=== PATIENT | male | born 1955 ===

== ENCOUNTER 2024-04-09 14:06 | Outpatient (AMB) | payer MEDICARE, MEDICAID, SELFPAY ==
--- NOTE | 2024-04-09 14:17 | A.OFFVIS_ITS ---
Intake Visit Reasons: gross hematuria, hx bladder cancer Intake Note: New patient is present to establish care for Gross Hematuria, Hx of Bladder Cancer. Was previously was seeing Urologist In [place] [facility] [place] Required: No Allergies No Known Allergies Allergy (Verified 04/09/24 20:49) Medication List - Last Reconciled 04/09/24 by MEGHANA Meneses amlodipine 5 mg PO DAILY atorvastatin 20 mg PO DAILY HPI Comments Details: Nik is a very pleasant 68-year-old male patient of Dr. Reis. He has a past medical history of left renal cysts, peripheral artery disease, multiple pulmonary nodules, hemorrhoids, hypertension, history of bladder cancer, ED, nicotine dependence, adrenal adenoma, and abdominal aortic aneurysm. He presents to the office today as a new patient for gross hematuria. He discusses having followed up approximately 2 years ago with a urologist in [place] and undergoing multiple treatments for his bladder cancer. He reports being told his bladder cancer was gone and no longer needed to follow- up. He reports noting over the last 2-3 months having episodes of gross hematuria. When asked he does report a longstanding history of nicotine dependence. He reports smoking for over 60 years. He is unable to provide a urine sample today. When asked he reports noting urinary incontinence. He discusses his upcoming follow-up appointment tomorrow with General surgery at [facility] for ongoing hemorrhoids he has been experiencing. He otherwise denies dysuria, foul smelling urine, changes to urinary stream, flank pain, fever, and or chills. Discussed obtaining CT urogram for further assessment evaluation as well as urine cytology, urine fish for further assessment evaluation. I discussed reasons for blood in the urine may include but are not limited to kidney stones, cancer in the urinary tract, BPH, kidney stone disease or inflamm atory conditions of the urinary tract. I have discussed workup to include cystoscopy evaluation. [facility] Medical History (Updated 04/09/24 @ 14:40 by MEGHANA Meneses) Renal cyst, left Peripheral artery disease Obesity, Class I, BMI 30-34.9 Multiple pulmonary nodules Hemorrhoids HTN (hypertension) Hx of bladder cancer Erectile dysfunction Cigarette smoker Adrenal adenoma AAA (abdominal aortic aneurysm) Surgical History (Updated 04/09/24 @ 14:14 by Ingrid Boggs Shahzad) History of repair of inguinal hernia History of cholecystectomy History of transurethral resection of bladder tumor (TURBT) Social History (Updated 04/09/24 @ 14:14 by SHAHNAZ Gonzalez) Patient Tobacco Use Status: Current everyday Tobacco user Review of Systems Const Reports as per HPI Eyes Reports no additional complaints ENT Reports no additional complaints Card Reports as per HPI Resp Reports as per HPI GI Reports as per HPI Reports as per HPI Musc Reports no additional complaints Neuro Reports no additional complaints Psych Reports no additional complaints Endo Reports no additional complaints Oscar/Lymph Reports no additional complaints Aller/Immun Reports no additional complaints Physical Exam Const General: cooperative, healthy appearing, comfortable, no acute distress, well developed, alert and awake Orientation/consciousness: patient oriented x3 Limitations: no limitations HEENT Head: Yes normal to inspection, Yes normocephalic and Yes atraumatic Ears: hearing grossly normal bilaterally Eyes General: appearance normal, both eyes and all related structures Neck Neck: Yes normal visual inspection and Yes trachea midline Chest Chest palpation & inspection: normal inspection of the chest Resp Effort & Inspection: normal respiratory effort and able to speak in complete sentences Cardio Rate: regular rate GI Inspection: Yes normal to inspection General: Yes no CVA tenderness Back/Spine/Pelvis Back: no CVA tenderness Skin General skin exam: no rashes or lesions noted Neuro General: patient oriented x3 Extrem General: Yes normal to inspection Psych Appearance: grossly normal and well kempt Mental Status: mental status grossly normal Speech and movement: Normal speech and movement present and Clear speech present Affect: normal affect Attitude: cooperative Thought process: Normal thought process present Thought content: Normal thought content present Insight: Fair insight present (Psych) Judgement: Fair judgement present (Psych) Assessment & Plan Assessment & Plan (1) Hx of bladder cancer: Code(s): Z85.51 - Personal history of malignant neoplasm of bladder Category: Medical (2) Gross hematuria: Code(s): R31.0 - Gross hematuria Category: Medical (3) Nicotine dependence: Code(s): F17.200 - Nicotine dependence, unspecified, uncomplicated Category: Medical Plan Unable to obtain urine for urinalysis. Medical release form signed will attempt to obtain previous urology records for continuity of care. Discussed obtaining BUN, creatinine, PSA, urine cytology and fish for further assessment evaluation. CT urogram ordered for further assessment evaluation. Discussed, educated, and stressed the importance of limiting/quitting nicotine dependence for overall health and well-being. Follow-up in office cystoscopy with imaging and labs to be completed prior; or sooner with any issues, concerns, and or questions. Orders: Orders Blood Urea Nitrogen Today F17.200 - Nicotine dependence, unspecified, unc omplicated, R31.0 - Gross hematuria, Z85.51 - Personal history of malignant neoplasm of bladder Creatinine Today F17.200 - Nicotine dependence, unspecified, uncomplicated, R 31.0 - Gross hematuria, Z85.51 - Personal history of malignant neoplasm of bladder Prostate Specific Antigen Today N40.0 - Benign prostatic hyperplasia without lower urinary tract symptoms Urine Cytology Today F17.200 - Nicotine dependence, unspecified, uncomplicated, R31.0 - Gross hematuria, Z85.51 - Personal history of malignant neoplasm of b ladder CT urogram Today R31.0 - Gross hematuria FISH Bladder Cancer Today C67.9 - Malignant neoplasm of bladder, unspecified Patient Instructions: The patient had an opportunity to ask questions regarding the treatment plan. All questions were answered. Physical exam, labs, and imaging were discussed and reviewed in detail. As well as risks, benefits, and discussion of treatment choices. No major barriers to understanding were identified. The patient expressed understanding and agreement with the above treatment plan. The patient was made aware they should contact our office by phone for worsening of their current condition, the appearance of new symptoms, or with any questions or concerns. Compliance is encouraged with any medications and follow up testing that is ordered. It is a privilege to be allowed the opportunity to participate in? your urological care.? Again, if you have any questions or concerns If you have any questions or concerns please do not hesitate to contact me. The office is [phone]. This note is constructed using voice recognition software. While every effort has been made to ensure accuracy automatic equipment technician errors may have been included. Yours sincerely, MEGHANA Meneses Coding Level of Care Code New Pt Level 4 (90849) Diagnoses Hx of bladder cancer Z85.51 Gross hematuria R31.0 Nicotine dependence F17.200
== END 2024-04-09 14:35 | disposition home or self-care (01) ==
PROVIDERS: PCP Nurse Practitioner Family; Visit Provider Nurse Practitioner Family
DX: Z85.51 Personal history of malignant neoplasm of bladder (principal); R31.0 Gross hematuria; F17.200 Nicotine dependence, unspecified, uncomplicated
CPT/HCPCS: 99204

== ENCOUNTER → 2024-04-09 14:06 | Outpatient (BNVA) | payer MEDICARE, MEDICAID, SELFPAY | PROVIDERS: PCP Nurse Practitioner Family; Visit Provider Nurse Practitioner Family | DX: R31.0 Gross hematuria (principal); Z85.51 Personal history of malignant neoplasm of bladder | CPT/HCPCS: 99202 ==

== ENCOUNTER 2024-06-10 08:23 | Outpatient (REF) | payer MEDICARE, MEDICAID, SELFPAY | END 2024-06-10 08:24 | disposition home or self-care (01) | LOC: HO.10HDL 08:23 | PROVIDERS: Visit Provider Nurse Practitioner Family | DX: R31.0 Gross hematuria (principal); F17.200 Nicotine dependence, unspecified, uncomplicated; N40.0 Benign prostatic hyperplasia without lower urinary tract symptoms; Z85.51 Personal history of malignant neoplasm of bladder | CPT/HCPCS: 88112 ==

== ENCOUNTER 2024-06-10 08:39 | Outpatient (REF) | payer MEDICARE, OTHER, SELFPAY ==
--- NOTE | ~2024-06-10 | CT_ITS ---
EXAMINATION: CT ABDOMEN AND PELVIS WITHOUT AND WITH CONTRAST CLINICAL INFORMATION: Gross hematuria COMPARISON: None available. TECHNIQUE: Noncontrast CT of the abdomen and pelvis is performed followed by split bolus contrast-enhanced images using 85 mL Omnipaque 350 contrast. Postcontrast imaging is performed during the combined nephrogram and excretion phase. Sagittal and coronal reformatted images were obtained on the technologist's workstation for both the precontrast and postcontrast phases. This CT examination was performed using dose optimization techniques as appropriate, variously including the following: *Automated exposure control *Adjustment of mA and/or kV according to patient size (this includes techniques or standardized protocols for targeted exams where dose is matched to indication/reason for exam; i.e. extremities or head) *Use of iterative reconstruction technique DLP: 688 mGy-cm FINDINGS: LUNG BASES: Bibasilar atelectasis. Multiple scattered bilateral pulmonary cysts, largest of which measure 8 mm in the lingula, 1.1 cm in the left lower lobe, and 6 mm in the right lower lobe. LIVER, GALLBLADDER, AND BILIARY TREE: The liver is normal in size, shape, and attenuation. No focal hepatic lesion. Mild bilateral pneumobilia. No biliary ductal dilatation is present. Status post cholecystectomy with surgical clips located in the gallbladder fossa. PANCREAS: Unremarkable. SPLEEN: Unremarkable. ADRENAL GLANDS: Right adrenal nodule measures 1.6 x 1.2 cm and -10 HU on noncontrast images (4:37). The left adrenal gland is unremarkable. KIDNEYS AND URETERS: Two simple renal cysts in the upper pole of the left kidney measure 1.4 x 0.8 cm (19:133) and 1.7 x 1.4 cm (19:150) are likely benign and do not require further imaging follow-up. The kidneys are normal in size, shape, and attenuation. No hydronephrosis, hydroureter, or calculi seen. No filling defects in the bilateral collecting systems. No perinephric stranding. BLADDER: Diffuse bladder wall thickening. There is layering excreted contrast in the bladder lumen, without filling defects. GASTROINTESTINAL TRACT: The small and large bowel are unremarkable. The appendix is not visualized but there are no inflammatory changes in the right lower quadrant to suggest acute appendicitis. ABDOMINAL WALL: No significant hernia is appreciated. LYMPH NODES: Normal. VASCULAR: Abdominal aortic aneurysm status post repair with an aorto-iliac stent graft into the left common iliac artery, which is patent. There is persistent aneurysm of the distal abdominal aorta that measures 4.3 x 2.9 cm. The excluded sac is completely thrombosed. Limited evaluation for endoleak, however slight increase in density of the excluded sac on delayed images may indicate the presence of an endoleak. There is a separate right common iliac artery stent graft with proximal orifice originating from the excluded thrombosed aneurysm sac. The right common iliac artery stent is also thrombosed and the right external iliac and internal iliac arteries are completely occluded. Reconstitution of the distal right common femoral artery via a patent proximal femoral bypass graft. PELVIC VISCERA: Unremarkable. OSSEUS STRUCTURES: Degenerative changes of the spine. No destructive osseous sections. CT/CT urogram IMPRESSION: 1. Diffuse bladder wall thickening, which may be secondary to underdistention or cystitis. Recommend urinalysis. 2. No filling defects in the bilateral collecting systems. No hydronephrosis or nephrolithiasis. 3. Abdominal aortic aneurysm status post repair with an aorto-iliac stent graft into the left common iliac artery, which is patent. 4. Persistent aneurysm of the distal abdominal aorta measures 4.3 cm in maximal diameter with thrombosis of the excluded sac. Limited evaluation for endoleak, however slight increase in density of the excluded sac on delayed images when compared to the noncontrast images may indicate the presence of an endoleak. Recommend CTA of the abdomen/pelvis to further characterize. 5. Occluded right common iliac artery stent graft, right external iliac artery, and right internal iliac artery. Reconstitution of the distal right common femoral artery via a patent proximal femoral bypass graft. 6. 1.6 cm right adrenal nodule measures -10 HU on noncontrast images. Adrenal nodules of any size exhibiting a CT density of =<10 HU are overwhelmingly likely to represent lipid rich benign adenomas for which no followup imaging is recommended. Electronically signed by: Marianne Fam MD 07/21/2024 12:02 PM EDT
[2024-06-10 09:18] LABS: Urine Cytology See Pathology rpt
[2024-06-10 09:28] LABS: Blood Urea Nitrogen 18 mg/dL (9-16); Estimated Glomerular Filt Rate > 60
[2024-06-10 10:02] LABS: Prostate Specific Antigen < 0.10 ng/mL (<0.05-4.0)
[2024-06-10] MEDS: iohexoL 350 MG/ML 100 ML INFUS..BTL 85 ML IV (10:31)
== END 2024-06-10 08:40 | disposition home or self-care (01) ==
LOC: HO.CT 08:39
PROVIDERS: Visit Provider Nurse Practitioner Family
DX: R31.0 Gross hematuria (principal); Z12.5 Encounter for screening for malignant neoplasm of prostate
CPT/HCPCS: 36415; 74178; 82565; 84153; 84520; Q9967

== ENCOUNTER 2024-07-30 10:12 | Outpatient (AMB) | payer MEDICARE, MEDICAID, SELFPAY ==
--- NOTE | 2024-07-30 10:34 | MHC.OFFVIS ---
Intake Visit Reasons: cysto/CT Intake Note: Patient is present for Cystoscopy/CT Urology Medication:NONE Antibiotic Allergy:NONE Blood Thinner:NONE Lot:[id number] Exp:09/21/27 Permastone Installer Required: No Allergies No Known Allergies Allergy (Verified 07/30/24 10:36) HPI Comments Details: 07/30/24--here for office cystoscopy. History of bladder cancer, patient states it has been about 2 years since he has seen his previous urologist. Current smoker. He states that he saw blood in the urine a few months ago. No recent episodes. He complains of urinary urgency and urge incontinence. Reviewed urine cytology-atypical cells. CT urogram within normal limits. Will repeat urine for cytology and also send a urine specimen for FISH. Trial of maaa-lhngsivkxtv-waruzjhtkh 10 mg daily. Follow-up with [facility] in 10 weeks. Cystoscopy findings: No suspicious intrinsic bladder lesions. Review of chart: 04/09/24--Nik is a very pleasant 68-year-old male patient of Dr. Reis. He has a past medical history of left renal cysts, peripheral artery disease, multiple pulmonary nodules, hemorrhoids, hypertension, history of bladder cancer, ED, nicotine dependence, adrenal adenoma, and abdominal aortic aneurysm. He presents to the office today as a new patient for gross hematuria. He discusses having followed up approximately 2 years ago with a urologist in [place] and undergoing multiple treatments for his bladder cancer. He reports being told his bladder cancer was gone and no longer needed to follow-up. He reports noting over the last 2-3 months having episodes of gross hematuria. When asked he does report a longstanding history of nicotine dependence. He reports smoking for over 60 years. He is unable to provide a urine sample today. When asked he reports noting urinary incontinence. He discusses his upcoming follow-up appointment tomorrow with General surgery at [facility] for ongoing hemorrhoids he has been experiencing. He otherwise denies dysuria, foul smelling urine, changes to urinary stream, flank pain, fever, and or chills. Discussed obtaining CT urogram for further assessment evaluation as well as urine cytology, urine fish for further assessment evaluation. I discussed reasons for blood in the urine may include but are not limited to kidney stones, cancer in the urinary tract, BPH, kidney stone disease or inflammatory conditions of the urinary tract. I have discussed workup to include cystoscopy evaluation. [facility] Medical History Renal cyst, left Peripheral artery disease Obesity, Class I, BMI 30-34.9 Multiple pulmonary nodules Hemorrhoids HTN (hypertension) Hx of bladder cancer Erectile dysfunction Cigarette smoker Adrenal adenoma AAA (abdominal aortic aneurysm) Surgical History History of repair of inguinal hernia History of cholecystectomy History of transurethral resection of bladder tumor (TURBT) Social History Patient Tobacco Use Status: Current everyday Tobacco user Review of Systems Const All systems reviewed & are unremarkable except as noted in HPI and below Reports no additional complaints Eyes Reports no additional complaints ENT Reports no additional complaints Card Reports no additional complaints Resp Reports no additional complaints GI Reports no additional complaints Reports as per HPI Musc Reports no additional complaints Skin/Breast Reports system reviewed and no additional complaints, except as documented Neuro Reports no additional complaints Psych Reports no additional complaints Endo Reports no additional complaints Oscar/Lymph Reports no additional complaints Aller/Immun Reports no additional complaints Office Procedures Cystoscopy Consent Discussed risk and benefit or proposed procedure with the patient. Information consent for procedure given to the patient. Discussed technical aspects, risks, benefits and alternatives in full. Addressed all of the patient's questions and concerns regarding the procedure. The patient demonstrated knowledge and understanding. They wish to proceed with this procedure. Preparation The patient was prepped in the usual manner. A cyber security analyst was present and in the room. Genitalia was prepped with betadine solution in a sterile manner. Lidocaine Jelly 2% was placed into the urethra and 16Fr flexible Olympus cystoscope was inserted into the meatus after adequate lubrication. Procedure Time out per protocol performed. Bladder Inspection Bladder Inspection: The bladder was inspected in its entirety with utilization retroflexion displaying: Tumor(s): no suspicious bladder lesions visualized Trabeculation: Mildi Mucosal Erthema: Mild Orifices: normal shape and position Urethra: normal Cystoscopy findings: prostatic urethra bilobar enlargement, bulbous urethra WNL, no suspicious bladder lesions visualized [id number] DISPOSABLE SCOPE URO-G FLEXIBLE SCOPE Procedure code (CPT) selection complete Office Meds lidocaine HCl 2 % mucosal jelly in applicator Performing Provider: Abe De Jesus MD Performing Location: [facility] Administered by: Samm Keller RN on 07/30/24 11:05 Dose Route Admin Location Dispensed Lot Number Expiration Date NDC Clinical Laboratory Technician 10 mL intra-urethral 10 mL naproxen 500 mg tablet Performing Provider: Abe De Jesus MD Performing Location: [facility] Administered by: Samm Keller RN on 07/30/24 11:05 Dose Route Admin Location Dispensed Lot Number Expiration Date NDC Clinical Laboratory Technician 500 mg PO 1 tab ciprofloxacin HCl 500 mg tablet Performing Provider: Abe De Jesus MD Performing Location: [facility] Administered by: Samm Keller RN on 07/30/24 11:05 Dose Route Admin Location Dispensed Lot Number Expiration Date NDC Clinical Laboratory Technician 500 mg PO 1 tab Results AMB Urinalysis, Automated UA Leukoctes 0 Thania/uL Last Edit by PRINCE Murphy on 07/30/24 10:54 UA Nitrite Negative Last Edit by PRINCE Murphy on 07/30/24 10:54 UA Urobilinogen 0.2 mg/dL Last Edit by PRINCE Murphy on 07/30/24 10:54 UA Protein 15 mg/dL Last Edit by PRINCE Murphy on 07/30/24 10:54 UA pH 7.0 Last Edit by Lorenza Griffin CCM on 07/30/24 10:54 UA Blood 0 Kervin/uL Last Edit by PRINCE Murphy on 07/30/24 10:54 UA Specific Sneads 1.015 Last Edit by PRINCE Murphy on 07/30/24 10:54 UA Ketone Negative Last Edit by PRINCE Murphy on 07/30/24 10:54 UA Bilirubin 0 mg/dL Last Edit by PRINCE Murphy on 07/30/24 10:54 UA Glucose 0 mg/dL Last Edit by PRINCE Murphy on 07/30/24 10:54 Results Reviewed Results Reviewed: Laboratory Last Values Urine pH (Auto) 7.0 07/30/24 10:53 Specific Sneads (Auto) 1.015 07/30/24 10:53 Urine Protein (Auto) 15 mg/dL 07/30/24 10:53 Glucose (UA)(Auto) 0 mg/dL 07/30/24 10:53 Urine Ketones (Auto) Negative 07/30/24 10:53 Urine Blood (Auto) 0 Kervin/uL 07/30/24 10:53 Urine Nitrite (Auto) Negative 07/30/24 10:53 Urine Bilirubin (Auto) 0 mg/dL 07/30/24 10:53 Urine Urobilinogen (Auto) 0.2 mg/dL 07/30/24 10:53 Leukocyte Esterase (Auto) 0 Thania/uL 07/30/24 10:53 Date of Service: 06/10/24 EXAMINATION: CT ABDOMEN AND PELVIS WITHOUT AND WITH CONTRAST CLINICAL INFORMATION: Gross hematuria COMPARISON: None available. TECHNIQUE: Noncontrast CT of the abdomen and pelvis is performed followed by split bolus contrast-enhanced images using 85 mL Omnipaque 350 contrast. Postcontrast imaging is performed during the combined nephrogram and excretion phase. Sagittal and coronal reformatted images were obtained on the technologist's workstation for both the precontrast and postcontrast phases. This CT examination was performed using dose optimization techniques as appropriate, variously including the following: *Automated exposure control *Adjustment of mA and/or kV according to patient size (this includes techniques or standardized protocols for targeted exams where dose is matched to indication/reason for exam; i.e. extremities or head) *Use of iterative reconstruction technique DLP: 688 mGy-cm FINDINGS: LUNG BASES: Bibasilar atelectasis. Multiple scattered bilateral pulmonary cysts, largest of which measure 8 mm in the lingula, 1.1 cm in the left lower lobe, and 6 mm in the right lower lobe. LIVER, GALLBLADDER, AND BILIARY TREE: The liver is normal in size, shape, and attenuation. No focal hepatic lesion. Mild bilateral pneumobilia. No biliary ductal dilatation is present. Status post cholecystectomy with surgical clips located in the gallbladder fossa. PANCREAS: Unremarkable. SPLEEN: Unremarkable. ADRENAL GLANDS: Right adrenal nodule measures 1.6 x 1.2 cm and -10 HU on noncontrast images (4:37). The left adrenal gland is unremarkable. KIDNEYS AND URETERS: Two simple renal cysts in the upper pole of the left kidney measure 1.4 x 0.8 cm (19:133) and 1.7 x 1.4 cm (19:150) are likely benign and do not require further imaging follow-up. The kidneys are normal in size, shape, and attenuation. No hydronephrosis, hydroureter, or calculi seen. No filling defects in the bilateral collecting systems. No perinephric stranding. BLADDER: Diffuse bladder wall thickening. There is layering excreted contrast in the bladder lumen, without filling defects. GASTROINTESTINAL TRACT: The small and large bowel are unremarkable. The appendix is not visualized but there are no inflammatory changes in the right lower quadrant to suggest acute appendicitis. ABDOMINAL WALL: No significant hernia is appreciated. LYMPH NODES: Normal. VASCULAR: Abdominal aortic aneurysm status post repair with an aorto-iliac stent graft into the left common iliac artery, which is patent. There is persistent aneurysm of the distal abdominal aorta that measures 4.3 x 2.9 cm. The excluded sac is completely thrombosed. Limited evaluation for endoleak, however slight increase in density of the excluded sac on delayed images may indicate the presence of an endoleak. There is a separate right common iliac artery stent graft with proximal orifice originating from the excluded thrombosed aneurysm sac. The right common iliac artery stent is also thrombosed and the right external iliac and internal iliac arteries are completely occluded. Reconstitution of the distal right common femoral artery via a patent proximal femoral bypass graft. PELVIC VISCERA: Unremarkable. OSSEUS STRUCTURES: Degenerative changes of the spine. No destructive osseous sections. IMPRESSION: 1. Diffuse bladder wall thickening, which may be secondary to underdistention or cystitis. Recommend urinalysis. 2. No filling defects in the bilateral collecting systems. No hydronephrosis or nephrolithiasis. 3. Abdominal aortic aneurysm status post repair with an aorto-iliac stent graft into the left common iliac artery, which is patent. 4. Persistent aneurysm of the distal abdominal aorta measures 4.3 cm in maximal diameter with thrombosis of the excluded sac. Limited evaluation for endoleak, however slight increase in density of the excluded sac on delayed images when compared to the noncontrast images may indicate the presence of an endoleak. Recommend CTA of the abdomen/pelvis to further characterize. 5. Occluded right common iliac artery stent graft, right external iliac artery, and right internal iliac artery. Reconstitution of the distal right common femoral artery via a patent proximal femoral bypass graft. 6. 1.6 cm right adrenal nodule measures -10 HU on noncontrast images. Adrenal nodules of any size exhibiting a CT density of =<10 HU are overwhelmingly likely to represent lipid rich benign adenomas for which no followup imaging is recommended. Urine Cytology--Collected: 06/10/24 Location: [facility]10L Received: 06/11/24 Diagnosis Urine: Atypical urothelial cells. See comment. COMMENT: Cellular specimen consisting of rare groups of urothelial cells, which are moderately enlarged, have somewhat higher nuclear-cytoplasmic ratio and open chromatin. The background has single urothelial cells, squamous cells, acute inflammatory cells and red blood cells. Clinical History Personal history of malignant neoplasm of bladder, gross hematuria Material Received Urine Gross Description Received is 62 cc of clear yellow fluid from which a ThinPrep slide is prepared. NOTE: Unless otherwise stated, all tissue is formalin-fixed and paraffin-embedded. Some or all of the immunohistochemical tests reported herein may have been developed and their performance characteristics determined by [facility]. They have not been cleared or approved by the U.S. Food and Drug Administration (FDA). However, the FDA has determined that such clearance or approval is not necessary. This laboratory is certified under the Clinical Laboratory Improvement Amendments of 1988 (CLIA) as qualified to perform high complexity clinical laboratory testing. Electronically Signed By: Adonis Urena MD 06/12/24 1225 Patient: Nik Vogel Age/Sex: 69/M MR#: [id number] Page 1 of 1 Assessment & Plan Assessment & Plan (1) Hx of bladder cancer: Code(s): Z85.51 - Personal history of malignant neoplasm of bladder Category: Medical (2) Gross hematuria: Code(s): R31.0 - Gross hematuria Category: Medical (3) Nicotine dependence: Code(s): F17.200 - Nicotine dependence, unspecified, uncomplicated Category: Medical (4) Urge incontinence of urine: Code(s): N39.41 - Urge incontinence Category: Medical Plan Reviewed urine cytology-atypical cells. CT urogram within normal limits. Will repeat urine for cytology and also send a urine specimen for FISH. Trial of fjre-hoowjurdlrp-cvgnawqyct 10 mg daily. Follow-up with [facility] in 10 weeks. Cystoscopy findings: No suspicious intrinsic bladder lesions. Orders: Orders AMB Cystoscopy Today F17.200 - Nicotine dependence, unspecified, uncomplicated, R31.0 - Gross hematuria, Z85.51 - Personal history of malignant neoplasm of bladder AMB Urinalysis Automated Today Z13.9 - Encounter for screening, unspecified Urine Cytology Today R31.9 - Hematuria, unspecified Patient Instructions: The patient had an opportunity to ask questions regarding treatment plan. The patient expressed understanding and agreement with the above treatment plan. The patient is aware they should contact our office by phone for worsening of their current condition or the appearance of new symptoms. Compliance is encouraged with any medications and followup testing that is ordered. It is a privilege to be allowed the opportunity to participate in the urologic care of your patient. If you have any questions or concerns regarding treatment for the above conditions please do not hesitate to contact me. The office telephone contact is [phone]. This note is constructed in part using voice recognition software. While every effort has been made to ensure accuracy car body inspector errors may have been included. Yours sincerely, Abe De Jesus MD Coding Level of Care Code Est Pt Level 4 (12332) Diagnoses Hx of bladder cancer Z85.51 Gross hematuria R31.0 Nicotine dependence F17.200 Urge incontinence of urine N39.41 CPT Codes Cystoscopy - CPT: 78711-[id number] ([id number])
== END 2024-07-30 11:48 | disposition home or self-care (01) ==
PROVIDERS: PCP Nurse Practitioner Family; Visit Provider Urology
DX: Z85.51 Personal history of malignant neoplasm of bladder (principal); R31.0 Gross hematuria; F17.200 Nicotine dependence, unspecified, uncomplicated; N39.41 Urge incontinence; Z13.9 Encounter for screening, unspecified
CPT/HCPCS: 52000; 99214

== ENCOUNTER 2024-07-30 10:12 | Outpatient (REF) | payer MEDICARE, MEDICAID, SELFPAY ==
[2024-07-30 17:00] LABS: Urine Cytology See Pathology rpt
== END 2024-07-30 10:13 | disposition home or self-care (01) ==
LOC: HO.LNP 10:12
PROVIDERS: PCP Nurse Practitioner Family; Visit Provider Urology
DX: R31.0 Gross hematuria (principal); N39.41 Urge incontinence; F17.210 Nicotine dependence, cigarettes, uncomplicated; Z85.51 Personal history of malignant neoplasm of bladder
CPT/HCPCS: 52000; 81003; 88112; 99212

== ENCOUNTER 2024-08-04 10:03 | Outpatient (REF) | payer MEDICARE, OTHER, SELFPAY | END 2024-08-04 10:04 | disposition home or self-care (01) | LOC: HO.10HDLNP 10:03 | PROVIDERS: Visit Provider Nurse Practitioner Family | DX: C67.9 Malignant neoplasm of bladder, unspecified (principal) | CPT/HCPCS: 88121 ==

== ENCOUNTER 2024-10-09 09:54 | Outpatient (AMB) | payer MEDICARE, MEDICAID, SELFPAY ==
--- NOTE | 2024-10-09 02:23 | MHC.OFFVIS ---
Intake Visit Reasons: 10w follow up/PVR Intake Note: Patient is present for 10W F/U PVR Urology Medication: NONE Antibiotic Allergy:NONE Blood Thinner:NONE TODAY'S PVR:0ML'[employer]r Required: No Allergies No Known Allergies Allergy (Verified 10/09/24 10:04) Medication List - Last Reconciled 10/09/24 by Abe De Jesus MD amlodipine 5 mg PO DAILY atorvastatin 20 mg PO DAILY oxybutynin chloride ER 10 mg PO DAILY HPI Comments Details: 10/09/24--10 week FU- Nik past medical history of left renal cysts, peripheral artery disease, multiple pulmonary nodules, hemorrhoids, hypertension, history of bladder cancer, ED, nicotine dependence, adrenal adenoma, and abdominal aortic aneurysm. He had complaints of urgency frequency and was started on oxybutynin 10 mg daily. The patient states the medication helped a lot. Denies any repeat episodes of blood in the urine. Reviewed --epeat urine cytology- 07/30/24- Negative. Review of chart: 07/30/24--here for office cystoscopy. History of bladder cancer, patient states it has been about 2 years since he has seen his previous urologist. Current smoker. He states that he saw blood in the urine a few months ago. No recent episodes. He complains of urinary urgency and urge incontinence. Reviewed urine cytology-atypical cells. CT urogram within normal limits. Will repeat urine for cytology and also send a urine specimen for FISH. Trial of btip-cuezagbddml-jkapnyawru 10 mg daily. Follow-up with PVR in 10 weeks. Cystoscopy findings: No suspicious intrinsic bladder lesions. 04/09/24--Nik is a very pleasant 68-year-old male patient of Dr. Reis. He has a past medical history of left renal cysts, peripheral artery disease, multiple pulmonary nodules, hemorrhoids, hypertension, history of bladder cancer, ED, nicotine dependence, adrenal adenoma, and abdominal aortic aneurysm. He presents to the office today as a new patient for gross hematuria. He discusses having followed up approximately 2 years ago with a urologist in [place] and undergoing multiple treatments for his bladder cancer. He reports being told his bladder cancer was gone and no longer needed to follow-up. He reports noting over the last 2-3 months having episodes of gross hematuria. When asked he does report a longstanding history of nicotine dependence. He reports smoking for over 60 years. He is unable to provide a urine sample today. When asked he reports noting urinary incontinence. He discusses his upcoming follow-up appointment tomorrow with General surgery at [facility] for ongoing hemorrhoids he has been experiencing. He otherwise denies dysuria, foul smelling urine, changes to urinary stream, flank pain, fever, and or chills. Discussed obtaining CT urogram for further assessment evaluation as well as urine cytology, urine fish for further assessment evaluation. I discussed reasons for blood in the urine may include but are not limited to kidney stones, cancer in the urinary tract, BPH, kidney stone disease or inflammatory conditions of the urinary tract. I have discussed workup to include cystoscopy evaluation. [facility] Medical History Renal cyst, left Peripheral artery disease Obesity, Class I, BMI 30-34.9 Multiple pulmonary nodules Hemorrhoids HTN (hypertension) Hx of bladder cancer Erectile dysfunction Cigarette smoker Adrenal adenoma AAA (abdominal aortic aneurysm) Surgical History History of repair of inguinal hernia History of cholecystectomy History of transurethral resection of bladder tumor (TURBT) Social History Patient Tobacco Use Status: Current everyday Tobacco user Review of Systems Const All systems reviewed & are unremarkable except as noted in HPI and below Reports no additional complaints Eyes Reports no additional complaints ENT Reports no additional complaints Card Reports no additional complaints Resp Reports no additional complaints GI Reports no additional complaints Reports as per HPI Musc Reports no additional complaints Skin/Breast Reports system reviewed and no additional complaints, except as documented Neuro Reports no additional complaints Psych Reports no additional complaints Endo Reports no additional complaints Oscar/Lymph Reports no additional complaints Aller/Immun Reports no additional complaints Office Procedures Post Void Residual Post Residual Void Post Void Residual (PVR): 0 [id number] Void Residual by ultrasound Results AMB Urinalysis, Automated UA Leukoctes 0 Thania/uL Last Edit by PRINCE Murphy on 10/09/24 10:14 UA Nitrite Negative Last Edit by PRINCE Murphy on 10/09/24 10:14 UA Urobilinogen 0.2 mg/dL Last Edit by PRINCE Murphy on 10/09/24 10:14 UA Protein 0 mg/dL Last Edit by Lorenza Griffin CCM on 10/09/24 10:14 UA pH 6.0 Last Edit by Lorenza [facility] on 10/09/24 10:14 UA Blood 0 Kervin/uL Last Edit by Lorenza Griffin CCM on 10/09/24 10:14 UA Specific Hackberry 1.020 Last Edit by Lorenza Griffin [facility] on 10/09/24 10:14 UA Ketone Negative Last Edit by Lorenza Griffin CCM on 10/09/24 10:14 UA Bilirubin 0 mg/dL Last Edit by Lorenza Griffin [facility] on 10/09/24 10:14 UA Glucose 0 mg/dL Last Edit by Lorenza Griffin [facility] on 10/09/24 10:14 Results Reviewed Results Reviewed: Laboratory Last Values Urine pH (Auto) 6.0 10/09/24 10:14 Specific Hackberry (Auto) 1.020 10/09/24 10:14 Urine Protein (Auto) 0 mg/dL 10/09/24 10:14 Glucose (UA)(Auto) 0 mg/dL 10/09/24 10:14 Urine Ketones (Auto) Negative 10/09/24 10:14 Urine Blood (Auto) 0 Kervin/uL 10/09/24 10:14 Urine Nitrite (Auto) Negative 10/09/24 10:14 Urine Bilirubin (Auto) 0 mg/dL 10/09/24 10:14 Urine Urobilinogen (Auto) 0.2 mg/dL 10/09/24 10:14 Leukocyte Esterase (Auto) 0 Thania/uL 10/09/24 10:14 Collected: 07/30/24 Location: [facility] Received: 07/31/24 Diagnosis Urine: Negative for high-grade urothelial carcinoma. COMMENT: Examination of a monolayer preparation slide shows benign squamous cells, benign urothelial cells, scattered inflammatory cells, and occasional red blood cells. Clinical History Hematuria, unspecified Material Received Urine Gross Description Received is 37 cc of clear yvette fluid Date of Service: 06/10/24 EXAMINATION: CT ABDOMEN AND PELVIS WITHOUT AND WITH CONTRAST CLINICAL INFORMATION: Gross hematuria COMPARISON: None available. TECHNIQUE: Noncontrast CT of the abdomen and pelvis is performed followed by split bolus contrast-enhanced images using 85 mL Omnipaque 350 contrast. Postcontrast imaging is performed during the combined nephrogram and excretion phase. Sagittal and coronal reformatted images were obtained on the technologist's workstation for both the precontrast and postcontrast phases. This CT examination was performed using dose optimization techniques as appropriate, variously including the following: *Automated exposure control *Adjustment of mA and/or kV according to patient size (this includes techniques or standardized protocols for targeted exams where dose is matched to indication/reason for exam; i.e. extremities or head) *Use of iterative reconstruction technique DLP: 688 mGy-cm FINDINGS: LUNG BASES: Bibasilar atelectasis. Multiple scattered bilateral pulmonary cysts, largest of which measure 8 mm in the lingula, 1.1 cm in the left lower lobe, and 6 mm in the right lower lobe. LIVER, GALLBLADDER, AND BILIARY TREE: The liver is normal in size, shape, and attenuation. No focal hepatic lesion. Mild bilateral pneumobilia. No biliary ductal dilatation is present. Status post cholecystectomy with surgical clips located in the gallbladder fossa. PANCREAS: Unremarkable. SPLEEN: Unremarkable. ADRENAL GLANDS: Right adrenal nodule measures 1.6 x 1.2 cm and -10 HU on noncontrast images (4:37). The left adrenal gland is unremarkable. KIDNEYS AND URETERS: Two simple renal cysts in the upper pole of the left kidney measure 1.4 x 0.8 cm (19:133) and 1.7 x 1.4 cm (19:150) are likely benign and do not require further imaging follow-up. The kidneys are normal in size, shape, and attenuation. No hydronephrosis, hydroureter, or calculi seen. No filling defects in the bilateral collecting systems. No perinephric stranding. BLADDER: Diffuse bladder wall thickening. There is layering excreted contrast in the bladder lumen, without filling defects. GASTROINTESTINAL TRACT: The small and large bowel are unremarkable. The appendix is not visualized but there are no inflammatory changes in the right lower quadrant to suggest acute appendicitis. ABDOMINAL WALL: No significant hernia is appreciated. LYMPH NODES: Normal. VASCULAR: Abdominal aortic aneurysm status post repair with an aorto-iliac stent graft into the left common iliac artery, which is patent. There is persistent aneurysm of the distal abdominal aorta that measures 4.3 x 2.9 cm. The excluded sac is completely thrombosed. Limited evaluation for endoleak, however slight increase in density of the excluded sac on delayed images may indicate the presence of an endoleak. There is a separate right common iliac artery stent graft with proximal orifice originating from the excluded thrombosed aneurysm sac. The right common iliac artery stent is also thrombosed and the right external iliac and internal iliac arteries are completely occluded. Reconstitution of the distal right common femoral artery via a patent proximal femoral bypass graft. PELVIC VISCERA: Unremarkable. OSSEUS STRUCTURES: Degenerative changes of the spine. No destructive osseous sections. IMPRESSION: 1. Diffuse bladder wall thickening, which may be secondary to underdistention or cystitis. Recommend urinalysis. 2. No filling defects in the bilateral collecting systems. No hydronephrosis or nephrolithiasis. 3. Abdominal aortic aneurysm status post repair with an aorto-iliac stent graft into the left common iliac artery, which is patent. 4. Persistent aneurysm of the distal abdominal aorta measures 4.3 cm in maximal diameter with thrombosis of the excluded sac. Limited evaluation for endoleak, however slight increase in density of the excluded sac on delayed images when compared to the noncontrast images may indicate the presence of an endoleak. Recommend CTA of the abdomen/pelvis to further characterize. 5. Occluded right common iliac artery stent graft, right external iliac artery, and right internal iliac artery. Reconstitution of the distal right common femoral artery via a patent proximal femoral bypass graft. 6. 1.6 cm right adrenal nodule measures -10 HU on noncontrast images. Adrenal nodules of any size exhibiting a CT density of =<10 HU are overwhelmingly likely to represent lipid rich benign adenomas for which no followup imaging is recommended. Urine Cytology--Collected: 06/10/24 Location: [address] Received: 06/11/24 Diagnosis Urine: Atypical urothelial cells. See comment. COMMENT: Cellular specimen consisting of rare groups of urothelial cells, which are moderately enlarged, have somewhat higher nuclear-cytoplasmic ratio and open chromatin. The background has single urothelial cells, squamous cells, acute inflammatory cells and red blood cells. Clinical History Personal history of malignant neoplasm of bladder, gross hematuria Material Received Urine Gross Description Received is 62 cc of clear yellow fluid from which a ThinPrep slide is prepared. NOTE: Unless otherwise stated, all tissue is formalin-fixed and paraffin-embedded. Some or all of the immunohistochemical tests reported herein may have been developed and their performance characteristics determined by [facility]. They have not been cleared or approved by the U.S. Food and Drug Administration (FDA). However, the FDA has determined that such clearance or approval is not necessary. This laboratory is certified under the Clinical Laboratory Improvement Amendments of 1988 (CLIA) as qualified to perform high complexity clinical laboratory testing. Electronically Signed By: Adonis Urena MD 06/12/24 [id number] Patient: Nik Vogel Age/Sex: 69/M MR#: [id number] Page 1 of 1 Assessment & Plan Assessment & Plan (1) Hx of bladder cancer: Code(s): Z85.51 - Personal history of malignant neoplasm of bladder Category: Medical (2) Gross hematuria: Code(s): R31.0 - Gross hematuria Category: Medical (3) Nicotine dependence: Code(s): F17.200 - Nicotine dependence, unspecified, uncomplicated Category: Medical (4) Urge incontinence of urine: Code(s): N39.41 - Urge incontinence Category: Medical (5) Screening PSA (prostate specific antigen): Code(s): Z12.5 - Encounter for screening for malignant neoplasm of prostate Category: Medical Plan Cont oxybutynin, fu one year, US retro and PSA prior Orders: Orders US retroperitoneal comp 10 Months N39.41 - Urge incontinence, Z85.51 - Personal history of malignant neoplasm of bladder PSA,Total (Free>4and<10) 10 Months Z12.5 - Encounter for screening for malignant neoplasm of prostate AMB Urinalysis Automated Today Z13.9 - Encounter for screening, unspecified Medications: New oxybutynin chloride ER 10 mg PO DAILY 90 tabs 3RF Patient Instructions: The patient had an opportunity to ask questions regarding treatment plan. The patient expressed understanding and agreement with the above treatment plan. The patient is aware they should contact our office by phone for worsening of their current condition or the appearance of new symptoms. Compliance is encouraged with any medications and followup testing that is ordered. It is a privilege to be allowed the opportunity to participate in the urologic care of your patient. If you have any questions or concerns regarding treatment for the above conditions please do not hesitate to contact me. The office telephone contact is [phone]. This note is constructed in part using voice recognition software. While every effort has been made to ensure accuracy computer console operator errors may have been included. Yours sincerely, Abe De Jesus MD Coding Level of Care Code Est Pt Level 4 (57955) Diagnoses Hx of bladder cancer Z85.51 Gross hematuria R31.0 Nicotine dependence F17.200 Urge incontinence of urine N39.41 Screening PSA (prostate specific antigen) Z12.5 CPT Codes Post Residual Void - PVR CPT Code: 64051-[id number] Void Residual by ultrasound ([id number])
== END 2024-10-09 11:05 | disposition home or self-care (01) ==
PROVIDERS: PCP Nurse Practitioner Family; Visit Provider Urology
DX: Z85.51 Personal history of malignant neoplasm of bladder (principal); R31.0 Gross hematuria; F17.200 Nicotine dependence, unspecified, uncomplicated; N39.41 Urge incontinence; Z12.5 Encounter for screening for malignant neoplasm of prostate; Z13.9 Encounter for screening, unspecified
CPT/HCPCS: 99214

== ENCOUNTER → 2024-10-09 09:54 | Outpatient (BNVA) | payer MEDICARE, MEDICAID, SELFPAY | PROVIDERS: PCP Nurse Practitioner Family; Visit Provider Urology | DX: R31.0 Gross hematuria (principal); N39.41 Urge incontinence; F17.210 Nicotine dependence, cigarettes, uncomplicated; Z85.51 Personal history of malignant neoplasm of bladder; Z87.442 Personal history of urinary calculi; Z12.5 Encounter for screening for malignant neoplasm of prostate | CPT/HCPCS: 51798; 81003; 99212 ==